=== PATIENT | female | born 1940 | race Caucasian/White ===

== ENCOUNTER → 2018-03-03 14:02 | Outpatient (CLI) | payer MEDICARE, SELFPAY | PROVIDERS: PCP Internal Medicine; Visit Provider Internal Medicine | DX: M81.0 Age-related osteoporosis without current pathological fracture (principal); Z78.0 Asymptomatic menopausal state; Z82.62 Family history of osteoporosis | CPT/HCPCS: 77080 ==

== ENCOUNTER → 2019-03-01 11:52 | Outpatient (CLI) | payer MEDICARE, SELFPAY | PROVIDERS: PCP Internal Medicine; Visit Provider Orthopaedic Surgery | DX: Z01.818 Encounter for other preprocedural examination (principal) | CPT/HCPCS: 93005 ==

== ENCOUNTER → 2019-11-07 11:57 | Outpatient (CLI) | payer MEDICARE, SELFPAY ==
[2019-11-07 13:03] LABS: BUN Creatinine Ratio 21.7 (6-22); Blood Urea Nitrogen 15 mg/dL (7-17); Calcium 9.8 mg/dL (8.4-10.2); Carbon Dioxide 31 mmol/L (22-32); Chloride 101 mmol/L (98-107); Estimated Glomerular Filt Rate > 60.0 mL/min (>60); Glucose 95 mg/dL (80-110); HEMOLYSIS < 15 (0-50); Potassium 3.9 mmol/L (3.4-5.1); Sodium 136 mmol/L (137-145)
== END ==
PROVIDERS: PCP Internal Medicine; Referring Provider Internal Medicine; Visit Provider Internal Medicine
DX: I10 Essential (primary) hypertension (principal); E78.2 Mixed hyperlipidemia
CPT/HCPCS: 36415; 80048

== ENCOUNTER → 2020-01-03 10:48 | Outpatient (CLI) | payer MEDICARE, SELFPAY ==
[2020-01-03 13:21] LABS: BUN Creatinine Ratio 24.3 (6-22); Blood Urea Nitrogen 17 mg/dL (7-17); Calcium 9.5 mg/dL (8.4-10.2); Carbon Dioxide 29 mmol/L (22-32); Chloride 103 mmol/L (98-107); Estimated Glomerular Filt Rate > 60.0 mL/min (>60); Glucose 89 mg/dL (80-110); HEMOLYSIS < 15 (0-50); Sodium 138 mmol/L (137-145)
== END ==
PROVIDERS: PCP Internal Medicine; Referring Provider Internal Medicine; Visit Provider Internal Medicine
DX: E78.5 Hyperlipidemia, unspecified (principal)
CPT/HCPCS: 36415; 80048

== ENCOUNTER → 2020-01-22 13:48 | Outpatient (CLI) | payer MEDICARE, SELFPAY | PROVIDERS: PCP Internal Medicine; Referring Provider Internal Medicine; Visit Provider Internal Medicine | DX: M81.0 Age-related osteoporosis without current pathological fracture (principal); Z78.0 Asymptomatic menopausal state; M15.0 Primary generalized (osteo)arthritis | CPT/HCPCS: 77080 ==

== ENCOUNTER → 2020-01-29 10:36 | Outpatient (CLI) | payer MEDICARE, SELFPAY ==
[2020-01-29 12:09] LABS: Cholesterol 212 mg/dL (140-199); HDL Cholesterol 80 mg/dL (40-60); LDL Cholesterol Calculated 114 mg/dL (<100); Triglycerides 91 mg/dL (35-150)
== END ==
PROVIDERS: PCP Internal Medicine; Referring Provider Internal Medicine; Visit Provider Internal Medicine
DX: I10 Essential (primary) hypertension (principal); E78.2 Mixed hyperlipidemia
CPT/HCPCS: 36415; 80061

== ENCOUNTER → 2020-05-31 07:47 | Outpatient (CLI) | payer MEDICARE, SELFPAY ==
[2020-05-31 08:58] LABS: Add Manual Diff / Slide Review NO; Basophils Absolute Auto 0 /uL (0-100); Basophils Percent Auto 0.8 % (0-2); Eosinophils Absolute Auto 200 /uL (0-450); Eosinophils Percent Auto 4.3 % (2-4); Hematocrit 38.6 % (36-46); Hemoglobin 12.6 g/dL (12.0-16.0); Lymphocytes Absolute Auto 1400 /uL (1100-4500); Lymphocytes Percent Auto 27.9 % (25-40); Mean Corpuscular HGB Conc 32.7 % (30-36); Mean Corpuscular Hemoglobin 29.3 PG (26-34); Mean Corpuscular Volume 89.4 fL (80-100); Monocytes Absolute Auto 700 /uL (0-900); Monocytes Percent Auto 14.1 % (3-14); Neutrophils Absolute Auto 2700 /uL (1500-7000); Neutrophils Percent Auto 52.9 % (50-75); Platelet Count 225 X10^3/uL (150-400); Red Blood Cell Count 4.32 X10^6/uL (4.0-5.2); Red Cell Distribution Width 13.4 % (11.6-14.8); White Blood Cell Count 5.1 X10^3/uL (4.5-11.0)
[2020-05-31 11:34] LABS: Erythrocyte Sedimentation Rate 22 MM/HR (0-20)
== END ==
PROVIDERS: PCP Internal Medicine; Referring Provider Internal Medicine; Visit Provider Internal Medicine
DX: I10 Essential (primary) hypertension (principal); E78.2 Mixed hyperlipidemia
CPT/HCPCS: 36415; 85025; 85651

== ENCOUNTER → 2020-07-18 09:13 | Outpatient (CLI) | payer MEDICARE, SELFPAY ==
--- NOTE | 2020-07-18 | DI.US.S_ITS ---
PROCEDURE: US PERIPH VENOUS LOW EXTREM RT INDICATIONS: RULE OUT DEEP VEIN THROMBOSIS TECHNIQUE: Real-time imaging, as well as color and pulse Doppler interrogation, were performed of the lower extremity deep veins from the inguinal ligament to the popliteal fossa. COMPARISON: None. FINDINGS: The common femoral, femoral and popliteal veins are normally compressible, and free of intraluminal thrombus. Color and pulse Doppler demonstrate normal phasic intraluminal flow. There is normal augmentation response to distal compression maneuver. IMPRESSION: No evidence of DVT in visualized right lower extremity veins. Dictated by: Guillermo Ravi M.D. on 07/18/2020 at 10:03 Approved by: Guillermo Ravi M.D. on 07/18/2020 at 10:06
== END ==
PROVIDERS: PCP Internal Medicine; Referring Provider Internal Medicine; Visit Provider Internal Medicine
DX: M79.604 Pain in right leg (principal)
CPT/HCPCS: 93971

== ENCOUNTER → 2020-10-10 18:43 | Outpatient (ROUT) | payer MEDICARE, SELFPAY ==
[2020-10-10 19:27] LABS: BUN Creatinine Ratio 21.5 (6-22); Blood Urea Nitrogen 14 mg/dL (7-17); Calcium 9.8 mg/dL (8.4-10.2); Carbon Dioxide 27 mmol/L (22-32); Chloride 102 mmol/L (98-107); Estimated Glomerular Filt Rate > 60.0 mL/min (>60); Glucose 93 mg/dL (80-110); HEMOLYSIS < 15 (0-50); Potassium 4.4 mmol/L (3.4-5.1); Sodium 137 mmol/L (137-145)
== END ==
PROVIDERS: PCP Internal Medicine
DX: I10 Essential (primary) hypertension (principal)
CPT/HCPCS: 80048

== ENCOUNTER 2021-02-16 22:15 | Emergency (ER) | payer MEDICARE, SELFPAY ==
[2021-02-16 22:30] VITALS: BP 210/92; PULSE 77; RESP 16; TEMP 36.9; O2SAT 99; BMI 27.8
--- NOTE | 2021-02-16 22:43 | ED_ITS ---
HPI - Chest Pain General Chief Complaint: Hypertension Stated Complaint: BLOOD PRESSURE Time Seen by Provider: 02/16/21 22:17 History of Present Illness HPI narrative: 80-year-old female nonsmoker with history of hypertension, palpitations and SVT presents for evaluation of elevated blood pressure and some left lateral chest pain. She denies any headache or blurred vision. She denies any shortness of breath but does have some left lateral chest wall tenderness is seems to be worse when she moves or takes a deep breath. She denies abdominal pain or nausea or vomiting. She denies any change in her medications or diet. She has had no recent travel, history of clot or cancer. Related Data Allergies Allergy/AdvReac Type Severity Reaction Status Date / Time etodolac [ETODOLAC] Allergy Mild DIZZYNESS Unverified 08/17/17 11:55 alendronate sodium Allergy Unknown RASH Unverified 08/17/17 11:55 [ALENDRONATE SODIUM] epinephrine [EPINEPHRINE] Allergy Unknown MAKES Unverified 08/17/17 11:55 EVERYTHING UNDER MY SKIN RACE Penicillins [PENICILLINS] Allergy Unknown Unverified 08/17/17 11:55 Review of Systems Review of Systems Narrative: GENERAL: Denies chills, fatigue, malaise, fever, sweats. HEENT: Denies sinus pain, ear pain, sore throat, difficulty swallowing, dizziness. RESPIRATORY: Denies dyspnea, cough, wheezing, hemoptysis, sputum. CARDIOVASCULAR: See HPI GASTROINTESTINAL: Denies nausea, vomiting, abdominal pain, diarrhea, constipation, melena. : Denies dysuria, frequency, incontinence, hematuria, urinary retention. MUSCULOSKELETAL: denies weakness, joint pain, or bony pain SKIN: Denies rash, skin lesions, or other NEUROLOGIC: Denies weakness, headache, numbness, change in speech, confusion, seizures, incoordination. PSYCHIATRIC: No concerning psychosocial issues. 12 point review of systems is negative except for those stated above Patient History Social History Smoking Status: Never smoker Exam Initial Vital Signs Initial Vital Signs: Vital Signs Temperature 98.4 F 02/16/21 22:30 Pulse Rate 77 02/16/21 22:30 Respiratory Rate 16 02/16/21 22:30 Blood Pressure 210/92 H 02/16/21 22:30 Pulse Oximetry 99 02/16/21 22:30 Course Orders Ordered: ED Orders 02/16/21 23:07 Complete Blood Count AUTO DIFF Stat Comprehensive Metabolic Panel Stat NT-proBNP (BNP-Adult 18+) Stat Troponin & CK Cardiac Panel Stat 02/16/21 23:41 XR chest 1V Stat Vital Signs Vital signs: Vital Signs - 8 hr 02/16/21 22:30 02/16/21 22:48 02/16/21 23:00 Temperature 98.4 F Pulse Rate 77 68 61 Respiratory Rate 16 18 Blood Pressure 210/92 H Pulse Oximetry 99 99 100 02/16/21 23:01 02/16/21 23:30 Temperature Pulse Rate 61 59 L Respiratory Rate 19 16 Blood Pressure 174/77 H 171/73 H Pulse Oximetry 100 97 MDM - Chest Pain Lab Data Result diagrams: 02/16/21 23:07 02/16/21 23:07 Labs: Lab Results 02/16/21 02/16/21 02/16/21 Range/Units 23:07 23:07 23:07 WBC 6.5 (4.5-11.0) X10^3/uL RBC 4.28 (4.0-5.2) X10^6/uL Hgb 12.5 (12.0-16.0) g/dL Hct 37.7 (36-46) % MCV 87.9 (80-100) fL MCH 29.3 (26-34) PG MCHC 33.3 (30-36) % RDW 13.9 (11.6-14.8) % Plt Count 218 (150-400) X10^3/uL Neut % (Auto) 61.8 (50-75) % Lymph % (Auto) 22.5 L (25-40) % [place] % (Auto) 11.7 (3-14) % Eos % (Auto) 3.1 (2-4) % Baso % (Auto) 0.9 (0-2) % Neut # (Auto) 4000 (3371-7009) /uL Lymph # (Auto) 1500 (8117-2025) /uL [place] # (Auto) 800 (0-900) /uL Eos # (Auto) 200 (0-450) /uL Baso # (Auto) 100 (0-100) /uL Sodium 139 (137-145) mmol/L Potassium 4.0 (3.4-5.1) mmol/L Chloride 105 (98-107) mmol/L Carbon Dioxide 28 (22-32) mmol/L BUN 20 H (7-17) mg/dL Creatinine 0.68 (0.52-1.04) mg/dL Estimated GFR > 60.0 (>60) mL/min BUN/Creatinine Ratio 29.4 H (6-22) Glucose 109 (80-110) mg/dL Calcium 9.7 (8.4-10.2) mg/dL Total Bilirubin 0.3 (0.2-1.3) mg/dL AST 32 (14-36) IU/L ALT 23 (<35) IU/L Alkaline Phosphatase 62 (38-126) U/L Total Creatine Kinase 59 (30-135) U/L CK-MB (CK-2) TNP CK-MB (CK-2) Rel Index TNP Troponin I < 0.012 (0.01-0.034) ng/mL NT-Pro-B Natriuret Pep 283 (<450) pg/mL Total Protein 6.8 (6.3-8.2) g/dL Albumin 4.2 (3.5-5.0) g/dL Globulin 2.6 (1.7-4.1) g/dL Albumin/Globulin Ratio 1.6 (1.0-2.8) ECG Data Interpretation: EKG is normal sinus rhythm rate [61 ] and free of any signs of ischemia or ectopy. No ST segmental elevation or depression. No T wave inversions MDM Narrative Medical decision making narrative: Patient presents for evaluation of elevated blood pressure largely in the absence of symptoms. She does have some pinpoint left lateral chest wall pain that is easily reproducible and palpated on her left lower lateral ribs. Chest x-ray is reassuring, EKGs nonischemic. Labs are very reassuring. Discharge Plan Departure Patient Disposition: Home Clinical Impression: Chest wall discomfort Hypertension Qualifiers: Hypertension type: unspecified Qualified Code(s): I10 - Essential (primary) hypertension Instructions: DI for High Blood Pressure Activity Restrictions/Additional Instructions: *You have been diagnosed with [elevated blood pressure with very reassuring history and physical exam, additionally EKG and labs look great. Also, chest wall pain which is likely due to inflammation. Your chest x-ray is very reassuring *What to do: *Please continue to take your regular medications as directed. [ ] New medication prescriptions sent to your pharmacy: [ ] [ ] New medication written as a paper prescription [x ] No new medications given *Please follow up with your primary care provider in 2-3 days, call for an appointment. Let them know you were seen in the Emergency Department and that we ask that you be seen in follow up. We will electronically transmit a record of today's note if your PCP is in our system *If you do not have a primary care provider please contact the [facility] Resource line at [phone]. They will ask some questions about your medical history and help get you set up with a doctor in the community. *Return to Emergency Department if you should have any new, worsening or concerning symptoms, such as [fever greater than 101 F, shaking chills, worsening pain, persistent vomiting or other bothersome symptoms] Referrals: Dawit Mckeon MD [Primary Care Provider] -
[2021-02-16 22:48] VITALS: PULSE 68; O2SAT 99
[2021-02-16 23:00] VITALS: PULSE 61; RESP 18; O2SAT 100
[2021-02-16 23:01] VITALS: BP 174/77; PULSE 61; RESP 19; O2SAT 100
[2021-02-16 23:18] LABS: Add Manual Diff / Slide Review NO; Basophils Absolute Auto 100 /uL (0-100); Basophils Percent Auto 0.9 % (0-2); Eosinophils Absolute Auto 200 /uL (0-450); Eosinophils Percent Auto 3.1 % (2-4); Hematocrit 37.7 % (36-46); Hemoglobin 12.5 g/dL (12.0-16.0); Lymphocytes Absolute Auto 1500 /uL (1100-4500); Lymphocytes Percent Auto 22.5 % (25-40); Mean Corpuscular HGB Conc 33.3 % (30-36); Mean Corpuscular Hemoglobin 29.3 PG (26-34); Mean Corpuscular Volume 87.9 fL (80-100); Monocytes Absolute Auto 800 /uL (0-900); Monocytes Percent Auto 11.7 % (3-14); Neutrophils Absolute Auto 4000 /uL (1500-7000); Neutrophils Percent Auto 61.8 % (50-75); Platelet Count 218 X10^3/uL (150-400); Red Blood Cell Count 4.28 X10^6/uL (4.0-5.2); Red Cell Distribution Width 13.9 % (11.6-14.8); White Blood Cell Count 6.5 X10^3/uL (4.5-11.0)
[2021-02-16 23:26] LABS: Creatine Kinase 59 U/L (30-135)
[2021-02-16 23:30] VITALS: BP 171/73; PULSE 59; RESP 16; O2SAT 97
[2021-02-16 23:35] LABS: Alanine Aminotransferase 23 IU/L (<35); Albumin 4.2 g/dL (3.5-5.0); Albumin Globulin Ratio 1.6 (1.0-2.8); Alkaline Phosphatase 62 U/L (38-126); Aspartate Aminotransferase 32 IU/L (14-36); BUN Creatinine Ratio 29.4 (6-22); Bilirubin Total 0.3 mg/dL (0.2-1.3); Blood Urea Nitrogen 20 mg/dL (7-17); Calcium 9.7 mg/dL (8.4-10.2); Carbon Dioxide 28 mmol/L (22-32); Chloride 105 mmol/L (98-107); Estimated Glomerular Filt Rate > 60.0 mL/min (>60); Globulin 2.6 g/dL (1.7-4.1); Glucose 109 mg/dL (80-110); HEMOLYSIS 25 (0-50); Sodium 139 mmol/L (137-145); Total Protein 6.8 g/dL (6.3-8.2)
[2021-02-16 23:39] LABS: NT-proBNP (BNP-Adult 18+) 283 pg/mL (<450); Troponin I < 0.012 ng/mL (0.01-0.034)
--- NOTE | 2021-02-16 23:41 | DI.RAD.S_ITS ---
PROCEDURE: XR CHEST 1V INDICATIONS: left sided chest pain TECHNIQUE: One view of the chest was acquired. COMPARISON: [facility], , CHEST 1 VIEW, 05/14/2015, 18:26. FINDINGS: Surgical changes and devices: None. Lungs and pleura: Lungs are clear. No pleural effusions or pneumothorax. Mediastinum: Mediastinal contours appear normal. Heart size is normal. Bones and chest wall: No suspicious bony lesions. Overlying soft tissues appear unremarkable. IMPRESSION: No acute disease. Dictated by: Zain Gregory M.D. on 02/16/2021 at 23:59 Approved by: Zain Gregory M.D. on 02/17/2021 at 0:00
[2021-02-17] VITALS: BP 194/87; PULSE 68; RESP 20; O2SAT 97
[2021-02-17 00:46] VITALS: PULSE 59; O2SAT 94
[2021-02-17 00:47] VITALS: BP 160/74; PULSE 59; O2SAT 99
== END 2021-02-17 00:57 | disposition home or self-care (01) ==
PROVIDERS: Emergency Provider Emergency Medicine; PCP Internal Medicine
DX: R07.89 Other chest pain (principal); I10 Essential (primary) hypertension
CPT/HCPCS: 36415; 71045; 80053; 82550; 83880; 84484; 85025; 93005; 93010; 99283; 99284

== ENCOUNTER → 2021-03-02 07:23 | Outpatient (CLI) | payer MEDICARE, SELFPAY ==
--- NOTE | 2021-03-02 07:26 | DI.US.S_ITS ---
PROCEDURE: US ABDOMEN COMPLETE INDICATIONS: RIGHT LOWER QUADRANT PAIN TECHNIQUE: Real-time scanning was performed of the abdominal and retroperitoneal organs, with image documentation. COMPARISON: [facility], US, ABDOMEN COMPLETE, 08/05/2011, 8:40. FINDINGS: Liver: Liver is normal in size and homogeneous in echotexture. Gallbladder: No gallbladder wall thickening, pericholecystic fluid, or shadowing gallstones. Biliary ducts: Intrahepatic bile ducts are non-dilated. The CBD is not well seen. Pancreas: Visualized portions of the pancreas are sonographically normal. Spleen: Spleen is normal in size and homogeneous in echotexture. Kidneys: Kidneys are normal in size and echotexture. Right kidney measures 8.7 cm long; left kidney measures 10.3 cm long. No hydronephrosis or nephrolithiasis. No solid masses. Aorta: Visualized aorta is normal in caliber at less than 3 cm. Iliacs: Proximal common iliac arteries are normal in caliber at less than 2.5 cm. IVC: Intrahepatic inferior vena cava is patent. Miscellaneous: No free abdominal fluid. IMPRESSION: No sonographic abnormality. Dictated by: Thomas Kern M.D. on 03/02/2021 at 8:55 Approved by: Thomas Kern M.D. on 03/02/2021 at 8:58
--- NOTE | 2021-03-02 07:27 | DI.US.S_ITS ---
PROCEDURE: US PELVIC COMPLETE INDICATIONS: RIGHT LOWER QUADRANT PAIN TECHNIQUE: Real-time scanning was performed of the pelvic organs, with image documentation. The patient refused the transvaginal portion of the examination. COMPARISON: None. FINDINGS: Uterus: The uterus is homogeneous, anteverted, and measures 4.2 x 3.9 x 2.1 cm. The endometrium is not well seen. Ovaries: The right ovary measures 4 4 x 2.3 x 2.6 cm and demonstrates normal vascularity. A hypoechoic lesion is seen within the right ovary, measuring 2.6 x 1.9 x 1.7 cm, compatible with a cyst. The left ovary is not visualized. Other: No pathologic free abdominal or pelvic fluid. IMPRESSION: Hypoechoic lesion in the right ovary as detailed above, most consistent with a cyst. Query hormone replacement therapy. Consider yearly follow-up to ensure stability or resolution. Dictated by: Thomas Kern M.D. on 03/02/2021 at 8:48 Approved by: Thomas Kern M.D. on 03/02/2021 at 8:55
== END ==
PROVIDERS: PCP Internal Medicine; Referring Provider Internal Medicine; Visit Provider Internal Medicine
DX: R10.31 Right lower quadrant pain (principal); N83.9 Noninflammatory disorder of ovary, fallopian tube and broad ligament, unspecified
CPT/HCPCS: 76700; 76856

== ENCOUNTER → 2021-09-17 09:55 | Outpatient (CLI) | payer MEDICARE, SELFPAY | PROVIDERS: PCP Internal Medicine; Referring Provider Obstetrics & Gynecology; Visit Provider Obstetrics & Gynecology | DX: N83.209 Unspecified ovarian cyst, unspecified side (principal) ==

== ENCOUNTER → 2021-09-24 12:10 | Outpatient (CLI) | payer MEDICARE, SELFPAY ==
--- NOTE | 2021-09-24 12:11 | DI.US.S_ITS ---
PROCEDURE: US PELVIC COMPLETE INDICATIONS: Cyst of ovary, right TECHNIQUE: Real-time scanning was performed of the pelvic organs, with image documentation. Additional endovaginal scanning was necessary due to incomplete visualization of the adnexal and endometrial structures by transabdominal scanning. COMPARISON: [facility], , US PELVIC COMPLETE, 03/02/2021, 8:17. FINDINGS: Limited image quality secondary to patient refusal of endovaginal imaging. Uterus: Uterus is normal in size at 6.0 x 2.3 x 3.0 cm. The myometrium is homogeneous. The endometrium measures approximately 1.0 mm combined thickness. Uterus has a normal sonographic appearance. Ovaries: The right ovary is suboptimally visualized. There is an approximately 2.5 x 2.0 x 2.0 centimeter cyst in the expected region of the right adnexa which is slightly increased in size compared to prior exam (2.6 x 1.9 x 1.7 centimeters previously). Left ovary is not identified and cannot be evaluated. Other: No pathologic free abdominal or pelvic fluid. IMPRESSION: 1. Limited image quality. Endovaginal imaging declined by the patient. 2. 2.5 x 2.0 x 2.0 centimeter right adnexal cyst slightly increased in size compared to prior examination. 3. Uterus has a normal sonographic appearance. Dictated by: Pascale Grimaldo MD, PhD on 09/24/2021 at 15:52 Approved by: Pascale Grimaldo MD, PhD on 09/24/2021 at 15:56
== END ==
PROVIDERS: PCP Internal Medicine; Referring Provider Obstetrics & Gynecology; Visit Provider Obstetrics & Gynecology
DX: N83.201 Unspecified ovarian cyst, right side (principal)
CPT/HCPCS: 76856

== ENCOUNTER → 2021-09-25 17:01 | Outpatient (CLI) | payer MEDICARE, SELFPAY ==
[2021-09-25 18:33] LABS: Cancer Antigen 125 7.1 U/mL (0-35); Carcinoembryonic Antigen 0.5 ng/mL (0.1-3.0)
[2021-09-27 08:54] LABS: Cancer (Carbohydrate) Ag 19-9 7 U/mL (0-35)
[2021-09-29 11:45] LABS: Human Epididymis Prot 4 60.6 pmol/L (0.0-96.9)
== END ==
PROVIDERS: PCP Internal Medicine; Referring Provider Obstetrics & Gynecology; Visit Provider Obstetrics & Gynecology
DX: R19.09 Other intra-abdominal and pelvic swelling, mass and lump (principal); N83.201 Unspecified ovarian cyst, right side
CPT/HCPCS: 36415; 82378; 86301; 86304; 86305

== ENCOUNTER → 2021-10-07 15:46 | Outpatient (CLI) | payer MEDICARE, SELFPAY ==
--- NOTE | 2021-10-07 15:47 | DI.MRI.S_ITS ---
PROCEDURE: MR PELVIS WO/W CON INDICATIONS: RIGHT ovarian cyst TECHNIQUE: Coronal HASTE, sagittal breath-hold T2 FSE; axial T1 FSE with and without fat saturation through the pelvis. Optional long- and short-axis uterine nonbreath-hold T2 FSE through the uterus. Sagittal or axial dynamic VIBE during administration of contrast. Post-contrast axial or coronal VIBE/2-D FLASH with fat saturation from the iliac crests to the symphysis. Optional diffusion weighted imaging and ADC may be performed. COMPARISON: [facility], , US PELVIC COMPLETE, 03/02/2021, 8:17. [facility], , US PELVIC COMPLETE, 09/24/2021, 12:18. FINDINGS: Image quality: Decreased. [place] sequences were obscured by artifact.. Uterus: The uterus is age-appropriate in size and signal. No suspicious endometrial thickening or uterine mass. Adnexa: The left ovary is normal in size measuring 2.0 cm. It demonstrates homogeneously low T2 and homogeneously increased T1 signal. The right ovary contains a thin-walled gently lobulated, unilocular cyst measuring 2.0 x 2.9 x 2.5 cm as well as another subcentimeter follicle. No peripheral or internal enhancement postcontrast. Urinary system: Bladder wall is normal in thickness. Distal ureters are non distended. Urethra appears normal in morphology. Nodes and vessels: No pelvic or inguinal adenopathy by size criteria. Iliac vessels are normal in size. Bowel and peritoneum: No pathologic free pelvic fluid. Inferior colon and small bowel loops are normal in caliber. Soft tissues: No inguinal hernias. No findings of pelvic floor incompetence in the absence of provocation. Bones: Marrow demonstrates normal overall signal. IMPRESSION: 1. Simple 2.9 cm right ovarian cyst. Annual follow-up is recommended. 2. 2.0 cm left ovary with homogeneous T1 hyperintensity suggesting proteinaceous or hemorrhagic cyst. 3. Age-appropriate uterus. Dictated by: Briana Moore M.D. on 10/07/2021 at 17:00 Approved by: Briana Moore M.D. on 10/07/2021 at 17:12
== END ==
PROVIDERS: PCP Internal Medicine; Referring Provider Obstetrics & Gynecology; Visit Provider Obstetrics & Gynecology
DX: N83.291 Other ovarian cyst, right side (principal)
CPT/HCPCS: 72197

== ENCOUNTER → 2022-01-12 15:17 | Outpatient (CLI) | payer MEDICARE, SELFPAY ==
--- NOTE | 2022-01-12 | DI.RAD.S_ITS ---
PROCEDURE: XR HIP W PEL IF DONE RT 2V INDICATIONS: Right hip pain TECHNIQUE: AP pelvis with lateral view(s) of the right hip(s). COMPARISON: [facility], PELVIS WITH BILATERAL HIPS, 10/08/2013, 10:33. [facility], MR, MR PELVIS WO/W CON, 10/07/2021, 16:06. FINDINGS: Bones: No fractures or dislocations. Pelvic ring appears intact. No suspicious bony lesions. Mild symmetric hip and sacroiliac joint degeneration bilaterally. Soft tissues: The visualized bowel gas pattern is normal. No suspicious soft tissue calcifications. IMPRESSION: 1. No acute osseous abnormalities. If clinical symptoms persist or clinical suspicion for internal derangement is high, advanced imaging such as CT or MRI is suggested for further evaluation. 2. 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 Dictated by: Linn Huynh M.D. on 01/12/2022 at 17:27 Approved by: Linn Huynh M.D. on 01/12/2022 at 17:28
== END ==
PROVIDERS: PCP Internal Medicine; Referring Provider Internal Medicine; Visit Provider Internal Medicine
DX: M25.551 Pain in right hip (principal); M16.0 Bilateral primary osteoarthritis of hip
CPT/HCPCS: 73502

== ENCOUNTER → 2022-01-15 12:52 | Outpatient (CLI) | payer MEDICARE, SELFPAY | PROVIDERS: PCP Internal Medicine; Referring Provider Internal Medicine; Visit Provider Internal Medicine | DX: Z78.0 Asymptomatic menopausal state (principal); M81.0 Age-related osteoporosis without current pathological fracture | CPT/HCPCS: 77080 ==

== ENCOUNTER → 2022-02-03 12:56 | Outpatient (CLI) | payer MEDICARE, SELFPAY ==
[2022-02-03 15:00] LABS: Alanine Aminotransferase 22 IU/L (<35); Albumin 4.1 g/dL (3.5-5.0); Albumin Globulin Ratio 1.4 (1.0-2.8); Alkaline Phosphatase 60 U/L (38-126); Aspartate Aminotransferase 30 IU/L (14-36); BUN Creatinine Ratio 28.2 (6-22); Bilirubin Total 0.3 mg/dL (0.2-1.3); Blood Urea Nitrogen 22 mg/dL (7-17); Calcium 9.1 mg/dL (8.4-10.2); Carbon Dioxide 29 mmol/L (22-32); Chloride 98 mmol/L (98-107); Estimated Glomerular Filt Rate > 60 mL/min (>60); Globulin 2.9 g/dL (1.7-4.1); Glucose 125 mg/dL (80-110); HEMOLYSIS < 15 (0-50); Potassium 3.7 mmol/L (3.4-5.1); Sodium 135 mmol/L (137-145)
== END ==
PROVIDERS: PCP Internal Medicine; Referring Provider Surgery; Visit Provider Surgery
DX: I10 Essential (primary) hypertension (principal)
CPT/HCPCS: 36415; 80053